=== PATIENT | female | born 1950 | race Caucasian/White ===

== ENCOUNTER 2016-05-11 11:27 | Emergency (ER) | payer BC, MEDICARE ==
[2016-05-11] MEDS ORDERED: TETRACAINE 0.5% OPHTH DROPS 15 ML BTL BOTH EYES STA (11:49)
[2016-05-11] MEDS ORDERED: PROPARACAINE 0.5% OPHTH DROPS 15 ML BTL BOTH EYES STA (11:51)
--- NOTE | 2016-05-11 11:55 | ED ---
Eye Problem HPI - General Chief complaint: Eye Problems Stated complaint: eye pain Time Seen by Provider: 05/11/16 11:41 Source: patient Mode of arrival: ambulatory Limitations: no limitations - History of Present Illness Initial comments: Patient is a 65-year-old female presenting with right eye pain. Patient states she was getting wood yesterday from a frozen pile. She pulled the wood off and it popped off hitting her in the right eye. Patient has been having pain and irritation since. She irrigated with eye solution per still having redness and tearing. Patient states she still able to see from right eye. - Related Data Previous Rx's Medication Instructions Recorded Erythromycin Ophth Oint [Romycin 1 applic RIGHT EYE QID 5 Days 05/11/16 Ophth Oint] HYDROcodone/APAP 5-325MG [Stonewall 5] 1 each PO Q6HR PRN #15 tab 05/11/16 Ketorolac 0.5% Ophth Soln [Acular 1 drops RIGHT EYE Q6H PRN #3 ml 05/11/16 0.5%] Allergies Allergy/AdvReac Type Severity Reaction Status Date / Time aspirin Allergy Unknown Verified 05/11/16 11:32 Review of Systems ROS Statement: Those systems with pertinent positive or pertinent negative responses have been documented in the HPI. Constitutional: No fever and no chills. HENT: No congestion, + unilateral clear rhinorrhea and no sore throat. Eyes: + Clear discharge and +redness. Respiratory: No cough and no shortness of breath. Cardiovascular: No chest pain and no palpitations. Gastrointestinal: No nausea, no vomiting, no abdominal pain and no diarrhea. Genitourinary: No dysuria and no hematuria. Musculoskeletal: No back pain and no arthralgias. Skin: No pallor and no rash. Neurological: No dizziness and No headaches. ROS Other: All systems not noted in ROS Statement are negative. Past Medical History Past Medical History: Seizure Disorder Additional Past Medical History / Comment(s): closed head injury History of Any Multi-Drug Resistant Organisms: None Reported Past Surgical History: Orthopedic Surgery Past Psychological History: No Psychological Hx Reported Smoking Status: Former smoker Past Alcohol Use History: None Reported Past Drug Use History: None Reported General Exam - General Exam Comments Initial Comments: Constitutional: Patient appears well-developed and well-nourished. Mild distress. Head: Normocephalic and atraumatic. Eyes: Extraocular motors intact. PERRLA. Right eye with scleral injections to the limbus. No hyphema. Immediate resolution of pain with proparacaine drops. Visual acuity both eyes 20/50. Right eye 20/70. Left eye 20/50. Slit lamp exam of right eye reveals corneal defect and fluorescein staining confirms increased uptake concerning for corneal abrasion.. Neck: Normal range of motion. Neck supple. Cardiovascular: Normal rate and regular rhythm. No murmur heard. Pulmonary/Chest: Effort normal and breath sounds normal. No respiratory distress. No wheezes. Abdominal: Soft. No distension. There is no tenderness. There is no rebound and no guarding. Musculoskeletal: Normal range of motion. No edema or tenderness. Neurological: Patient alert and oriented to person, place, and time. Skin: Skin is warm and dry. Not diaphoretic. Nursing notes and vitals reviewed. Limitations: no limitations Course Vital Signs 05/11/16 05/11/16 05/11/16 11:29 12:43 14:06 Temperature 97.0 F L 97.8 F Pulse Rate 63 59 L 65 Respiratory 20 15 20 Rate Blood Pressure 182/76 156/75 138/68 O2 Sat by Pulse 98 97 98 Oximetry - Reevaluation(s) Reevaluation #1: Patient doing well after proparacaine drops. Medical Decision Making - Medical Decision Making Patient presenting with right eye injury from trauma. Immediate resolution of pain with proparacaine drops. Slit lamp reveals increased fluorescein uptake concerning for corneal abrasion. Patient was discharged with erythromycin and Toradol eyedrops. Stonewall for severe pain. Strictly instructed to follow-up with ophthalmology on Friday. Prior to discharge, patient was resting comfortably in bed. Course of stay improved. Denies pain. Discussed physical exam and diagnostic tests with patient. Questions answered and patient is agreeable to discharge with close follow up with ophthalmology. Instructed to return to Emergency Department if symptoms worsen. Disposition Clinical Impression: Corneal abrasion Disposition: HOME SELF-CARE Condition: Good Instructions: Corneal Abrasion (ED) Prescriptions: HYDROcodone/APAP 5-325MG [Stonewall 5] 1 each PO Q6HR PRN #15 tab PRN Reason: Severe Pain Erythromycin Ophth Oint [Romycin Ophth Oint] 1 applic RIGHT EYE QID 5 Days Ketorolac 0.5% Ophth Soln [Acular 0.5%] 1 drops RIGHT EYE Q6H PRN #3 ml PRN Reason: Pain Referrals: Aracelis De La Cruz MD [Primary Care Provider] - 1-2 days Yoseph Welch MD [STAFF PHYSICIAN] - 1-2 days
[2016-05-11 14:07] VITALS: BP 138/68; PULSE 65; RESP 20; TEMP 97.8
== END 2016-05-11 14:00 | disposition home or self-care (01) ==
LOC: EC 11:27
DX: S05.01XA Injury of conjunctiva and corneal abrasion without foreign body, right eye, initial encounter (principal); Z87.891 Personal history of nicotine dependence; Z88.6 Allergy status to analgesic agent; W20.8XXA Other cause of strike by thrown, projected or falling object, initial encounter; Y93.89 Activity, other specified
CPT/HCPCS: 99283

== ENCOUNTER → 2019-02-16 | Outpatient (CLI) | payer MEDICARE ==
--- NOTE | 2019-02-17 14:22 | MM ---
Reason for exam: screening (asymptomatic). History: Patient is postmenopausal and is nulliparous. Physical Findings: A clinical breast exam by your physician is recommended on an annual basis and results should be correlated with mammographic findings. MG 3D Screening Mammo W/Cad Bilateral CC and MLO view(s) were taken. No prior studies available for comparison. The breast tissue is heterogeneously dense. This may lower the sensitivity of mammography. Finding #1: There is a 11 mm indistinct oval mass in the right breast on MLO and 4-5mm on CC . Finding #2: There are typically benign dystrophic, round calcifications in both breasts. ASSESSMENT: Incomplete: need additional imaging evaluation, BI-RAD 0 RECOMMENDATION: Special view mammogram of the right breast. If lesion persists on supplemental views, image directed ultrasound is recommended. [facility] will attempt to contact patient to return for supplemental views and ultrasound if indicated.
== END | disposition home or self-care (01) ==
LOC: RADMAMWWP 13:14
PROVIDERS: ATTEND Internal Medicine
DX: Z12.31 Encounter for screening mammogram for malignant neoplasm of breast (principal)
CPT/HCPCS: 77063; 77067

== ENCOUNTER → 2019-03-08 | Outpatient (CLI) | payer MEDICARE ==
--- NOTE | 2019-03-09 07:12 | MM ---
Reason for exam: additional evaluation requested from abnormal screening. Last mammogram was performed 1 month ago. History: Patient is postmenopausal and is nulliparous. Physical Findings: Nurse did not find any significant physical abnormalities on exam. MG 3D Work Up W/Cad RT Spot compression CC, spot compression MLO, and LM view(s) were taken of the right breast. Prior study comparison: February 16, 2019, bilateral MG 3d screening mammo w/cad. The breast tissue is heterogeneously dense. This may lower the sensitivity of mammography. Benign appearing calcifications in the right breast. Central upper 4mm right asymmetry subtly persists. Inferior asymmetry improves. These results were verbally communicated with the patient and result sheet given to the patient on 03/08/19. ASSESSMENT: Incomplete: need additional imaging evaluation, BI-RAD 0 RECOMMENDATION: Ultrasound of the right breast. (lateral including 1 o'clock)
--- NOTE | 2019-03-09 07:31 | USB ---
Reason for exam: additional evaluation requested from abnormal screening. History: Patient is postmenopausal and is nulliparous. US Breast Workup Limited RT Right limited breast ultrasound including focal area of concern, retroareolar and axilla demonstrates a 1.0 x 0.3 x 0.9cm hypoechoic lesion at 7 o'clock. No correlate for the smaller circumscribed mass. 6 month follow up mammogram pending biopsy results. These results were verbally communicated with the patient and result sheet given to the patient on 03/08/19. ASSESSMENT: Suspicious, BI-RAD 4 RECOMMENDATION: Ultrasound core biopsy of the right breast. Called Dr. De La Cruz's office with mammographic findings. Biopsy scheduled for 03/22/19 at 2:00. PRELIMINARY REPORT CALLED AND FAXED TO DR. DE LA CRUZ ON 03/08/19.
== END | disposition home or self-care (01) ==
LOC: RADMAMWWP 13:19
PROVIDERS: ATTEND Internal Medicine
DX: R92.8 Other abnormal and inconclusive findings on diagnostic imaging of breast (principal)
CPT/HCPCS: 77065; 76642; G0279; 77061

== ENCOUNTER → 2019-03-22 | Day surgery (SDC) | payer MEDICARE ==
[2019-03-22 13:22] VITALS: BP 124/73; PULSE 61; RESP 16; TEMP 98.2
--- NOTE | 2019-03-22 16:18 | USB ---
EXAMINATION TYPE: US discontinued breast core RT DATE OF EXAM: 03/22/2019 Comparison: 03/08/2019 and 02/16/2019 Clinical History: 68-year-old female referred for ultrasound-guided right breast biopsy for the 6-7 o 'clock elongated, hypoechoic lesion. FINDINGS: Targeted scanning redemonstrates the elongated lesion at the 6:00 position, zone A. However, this now has an appearance of either an elongated cyst or short segment ectatic duct. No suspicious filling d efect is identified. Findings were discussed with the patient and the biopsy is being canceled. Six-month follow-up is recommended. Six-month follow-up also recommended for 2 additional areas in the 7:00 position zone A: #1 measuring 4 x 3 x 3 mm, too small to characterize, and #2 measuring 5 x 3 mm. IMPRESSION: 1. Canceled ultrasound-guided right breast biopsy. 2. BI-RADS 3 - probably benign. RECOMMENDATION: 1. Six-month follow-up diagnostic right breast mammogram. 2. 6 month follow-up right breast ultrasound with particular attention to the 6:00 and 7:00 areas.
== END ==
LOC: RADUSWWP 13:01
PROVIDERS: ATTEND Internal Medicine
DX: N64.89 Other specified disorders of breast (principal); Z53.8 Procedure and treatment not carried out for other reasons

== ENCOUNTER → 2022-07-16 | Outpatient (CLI) | payer MEDICARE ==
--- NOTE | 2022-07-17 08:09 | XR ---
EXAMINATION TYPE: XR foot complete RT DATE OF EXAM: 07/16/2022 COMPARISON: None HISTORY: Pain and swelling, fall 3 weeks prior TECHNIQUE: 3 view right foot FINDINGS: There is a large plantar calcaneal heel spur. There appears to be some periarticular erosio n of the distal fifth metatarsal. Degenerative joint changes present in the first metatarsophalangeal joint space. Postsurgical sutures within the first digit adjacent to the phalanx. On the AP projection there is some lucency within the base of the proximal phalanx of the fifth digit . Correlate with location of the patient's pain. Small nondisplaced fracture is not entirely excluded . IMPRESSION: 1. Focal correlation for longitudinal fracture of the base of the fifth proximal phalanx. 2. Degenerative joint changes more notably at the fifth metatarsophalangeal joint and first metatarso phalangeal joint.
== END | disposition home or self-care (01) ==
LOC: RADXRYALE 13:45
PROVIDERS: ATTEND Psychiatry & Neurology Clinical Neurophysiology
DX: M19.071 Primary osteoarthritis, right ankle and foot (principal)

== ENCOUNTER → 2023-08-28 | Outpatient (CLI) | payer MEDICARE ==
--- NOTE | 2023-08-28 16:41 | US ---
EXAMINATION TYPE: US extremity nonvasc complete LT, MSK left shoulder DATE OF EXAM: 08/28/2023 COMPARISON: No radiographic correlation available CLINICAL INDICATION: Female, 73 years old with history of LT SHOULDER PAIN [id number]; Injury with decrea sed mobility x few months TECHNIQUE: Multiple sonographic images of the left shoulder are obtained. Some dynamic maneuvers are performed as well. FINDINGS: The long head biceps tendon appears mildly thickened and inhomogeneous especially along the upper bic ipital groove and junction with the intracapsular portion. Moderate tenosynovial fluid is present. Th e tendon remains appropriately situated. The subscapularis tendon appears normal and intact. At least mild degenerative change at the AC joint with some marginal spurring, small effusion, and ca psular hypertrophy. Radiographs can better assess the bony anatomy. There is some thickening and inhomogeneity of both supraspinatus and infraspinatus tendons but withou t discrete tear identified. Mild overlying effusion within the subacromial/subdeltoid bursa. Tissue quality is diminished. The supraspinatus and infraspinatus muscle bellies appear echogenic but with preserved volume and similar echogenicity compared to the overlying trapezius musculature. Unable to adequately detail the posterior aspect of the shoulder due to tissue quality IMPRESSION: 1. Long head biceps tendinosis and moderate tenosynovitis. 2. Additional diffuse supraspinatus and infraspinatus tendinosis. No evidence of rotator cuff tear. 3. Mild subacromial/subdeltoid bursal effusion/bursitis. 4. Given the patient's limited range of motion, consider further radiographic and MRI correlation corey ecially if symptoms persist. 5. At least mild AC joint OA.
== END | disposition home or self-care (01) ==
LOC: RADUSWWP 13:18
PROVIDERS: ATTEND Psychiatry & Neurology Psychiatry
DX: M65.9 Synovitis and tenosynovitis, unspecified (principal); M67.814 Other specified disorders of tendon, left shoulder; M19.012 Primary osteoarthritis, left shoulder

== ENCOUNTER → 2024-09-10 | Outpatient (CLI) | payer MEDICARE ==
--- NOTE | 2024-09-10 14:19 | XR ---
EXAMINATION TYPE: XR ankle complete LT DATE OF EXAM: 09/10/2024 1:27 PM COMPARISON: None. CLINICAL INDICATION: Female, 74 years old with history of [id number] SPRAIN LT ANKLE, fall one month robin or pain TECHNIQUE: 3 view(s) obtained. FINDINGS: There is a plantar calcaneal heel spur. Ankle mortise appears intact. No acute fracture or dislocatio n evident. Soft tissues appear normal. Follow up exams can be performed 7-10 days from acute trauma for continued pain. Soft tissue evaluati on can be performed with MRI. IMPRESSION: 1. No acute or subacute osseous abnormality left ankle. [facility], , 09/10/2024 2:16 PM
== END | disposition home or self-care (01) ==
LOC: RADXRYALE 13:07
PROVIDERS: ATTEND Internal Medicine
DX: S93.402A Sprain of unspecified ligament of left ankle, initial encounter (principal)

== ENCOUNTER → 2024-10-18 | Outpatient (CLI) | payer MEDICARE ==
--- NOTE | 2024-10-18 14:42 | XR ---
EXAMINATION TYPE: XR thoracic spine 2V DATE OF EXAM: 10/18/2024 2:18 PM COMPARISON: None CLINICAL INDICATION: Female, 74 years old with history of [id number],M546 LBP, THOR PAIN; YCH, pain FINDINGS: Vertebral body heights are preserved. There is extensive DISH throughout the mid and lower thoracic s pine. Alignment is maintained. 12 rib bearing thoracic vertebral bodies. All pedicles are visualized. IMPRESSION: Extensive DISH throughout the mid and lower thoracic spine. No obvious vertebral compression collapse or malalignment. If symptoms persist, consider more sensitive evaluation with MRI. [facility], Workstation: [facility], 10/18/2024 2:39 PM
--- NOTE | 2024-10-18 14:46 | XR ---
EXAMINATION TYPE: XR lumbosacral spine 5 views V DATE OF EXAM: 10/18/2024 2:18 PM COMPARISON: None CLINICAL INDICATION: Female, 74 years old with history of M5451, M546 LBP, THOR PAIN; YCH, pain FINDINGS: Moderate facet arthropathy mid to lower lumbar spine. Extensive DISH extending down to the L1 vertebr al body. Mild multilevel disc disease. Assess cardiac calcifications throughout the abdominal aorta. 5 lumbar type vertebral bodies. IMPRESSION: 1. Moderate facet arthropathy mid to lower lumbar spine. Mild multilevel degenerative disc disease. 2. Extensive DISH extending down to the L1 vertebral body. 3. No vertebral compression collapse or malalignment. [facility], Workstation: [facility], 10/18/2024 2:44 PM
== END | disposition home or self-care (01) ==
LOC: RADXRYALE 13:44
PROVIDERS: ATTEND Internal Medicine
DX: M51.360 Other intervertebral disc degeneration, lumbar region with discogenic back pain only (principal); M47.816 Spondylosis without myelopathy or radiculopathy, lumbar region; M48.14 Ankylosing hyperostosis [Forestier], thoracic region
CPT/HCPCS: 72070; 72110